=== PATIENT | male | born 1970 | race American Indian/Alaskan Native ===

== ENCOUNTER 2021-09-30 21:16 | Emergency (ER) | payer BC ==
--- NOTE | 2021-09-30 22:05 | Emergency Department Report ---
ED Fall HPI - General Chief Complaint: Fall Stated Complaint: FALL, ETOH, LACERATION Time Seen by Provider: 09/30/21 21:44 Source: patient, EMS Mode of arrival: Stretcher - History of Present Illness Initial Comments: Patient is 51 years old male with no significant past medical history except for alcohol abuse. Patient brought to the emergency room via EMS from home for evaluation after a fall. Patient family stated that patient was drinking Veronica when he fell landed on his face. Patient brought with a cervical collar in place. Patient is obtunded with appears to be intoxicated. Patient had to abrasion on his face 1 on the forehead and the other 1 is and the nose. Patient denies any other injuries. MD Complaint: fall -: This evening Fall From: standing Place Fall Occurred: home Symptoms Prior to Fall: none Location: head, neck Severity: moderate Context: tripped/slipped, alcohol use - Related Data Allergies Allergy/AdvReac Type Severity Reaction Status Date / Time No Known Allergies Allergy Verified 09/30/21 22:55 ED Review of Systems ROS: Stated complaint: FALL, ETOH, LACERATION Other details as noted in HPI Comment: All other systems reviewed and negative Constitutional: denies: chills Respiratory: denies: cough, shortness of breath, SOB with exertion Cardiovascular: denies: chest pain, palpitations Gastrointestinal: denies: abdominal pain, nausea, vomiting Musculoskeletal: denies: back pain Neurological: denies: headache, weakness, numbness, paresthesias, confusion ED Past Medical Hx - Past Medical History Previous Medical History?: No - Surgical History Past Surgical History?: No ED Physical Exam - General Limitations: Altered Mental Status General appearance: alert, in no apparent distress - Head Head exam: Present: other (Abrasion to the forehead and nose bridge.) - ENT ENT exam: Present: normal exam, normal orophraynx, mucous membranes moist - Neck Neck exam: Present: normal inspection, full ROM. Absent: tenderness, meningismus - Respiratory Respiratory exam: Present: normal lung sounds bilaterally - Cardiovascular Cardiovascular Exam: Present: regular rate, normal rhythm, normal heart sounds - GI/Abdominal GI/Abdominal exam: Present: soft, normal bowel sounds. Absent: distended, tenderness, guarding, rebound, rigid, organomegaly, mass, bruit, pulsatile mass, hernia - Extremities Exam Extremities exam: Present: normal inspection, full ROM, normal capillary refill. Absent: tenderness - Back Exam Back exam: Present: normal inspection, full ROM. Absent: CVA tenderness (R), CVA tenderness (L) - Neurological Exam Neurological exam: Present: altered, CN II-XII intact. Absent: motor sensory deficit - Psychiatric Psychiatric exam: Present: normal mood - Skin Skin exam: Present: warm, intact ED Course Vital Signs 09/30/21 21:36 Temperature 97.4 F L Pulse Rate 66 Respiratory 18 Rate Blood Pressure 98/53 [Left] O2 Sat by Pulse 95 Oximetry ED Medical Decision Making - Lab Data Result diagrams: 09/30/21 22:30 09/30/21 22:30 - Radiology Data Radiology results: report reviewed - Medical Decision Making Patient is 51 years old male with no significant past medical history except for alcohol abuse. Patient brought to the emergency room via EMS from home for evaluation after a fall. Patient family stated that patient was drinking Veronica when he fell landed on his face. Patient brought with a cervical collar in place. Patient is obtunded with appears to be intoxicated. Patient had to abrasion on his face 1 on the forehead and the other 1 is and the nose. Patient denies any other injuries. CT brain, CT facial bone and CT cervical spine is negative for acute finding. Labs reviewed and is unremarkable. Patient is alert, oriented x3 in no acute distress. Patient asking when is he going home. Patient counseled about alcohol abuse and advised to follow-up with his primary doctor in the next 2 to 3 days and treated if he develop any new symptoms. Critical care attestation.: If time is entered above; I have spent that time in minutes in the direct care of this critically ill patient, excluding procedure time. ED Disposition Clinical Impression: Head injury, Fall, Alcohol abuse Disposition: HOME / SELF CARE / HOMELESS Is pt being admited?: No Condition: Stable Instructions: Alcohol Use Disorder, Head Injury, Adult Referrals: BOWEN DÍAZ [Primary Care Provider] - 3-5 Days
--- NOTE | 2021-09-30 22:55 | Cat Scan Report ---
CT facial bones wo con, CT head/brain wo con INDICATION: Fall. TECHNIQUE: CT head and CT face. All CT scans at this location are performed using CT dose reduction f or ALARA by means of automated exposure control. COMPARISON: None. FINDINGS: HEAD: BRAIN PARENCHYMA: No acute intracranial hemorrhage. No evidence of recent infarct. No mass effect or midline shift. VENTRICULAR SYSTEM/EXTRA-AXIAL SPACES: Ventricles are normal for age. No extra-axial fluid collection . CALVARIUM: Soft tissue swelling of the frontal scalp. Calvarium is intact. FACE: FACIAL BONES: Small essentially nondisplaced fracture of the right nasal bone, age indeterminate. Elvis al septum is intact. Bony orbits are preserved. Maxilla/pterygoid plates and zygomatic arches are int act. Mandibular condyles are well-seated within the glenoid fossa of the temporal mandibular joint. SINUSES: Paranasal sinuses and mastoid air cells are essentially clear. ORBITS: Globes are intact. ADDITIONAL FINDINGS:No other significant abnormality. IMPRESSION: 1. No acute intracranial abnormality. 2. Age-indeterminate nondisplaced right nasal bone fracture. Otherwise, no acute facial fractures. Signer Name: Tomas Oquendo MD Signed: 09/30/2021 10:50 PM Workstation Name: [id number]
--- NOTE | 2021-09-30 22:56 | Cat Scan Report ---
CT CERVICAL SPINE WITHOUT CONTRAST INDICATION / CLINICAL INFORMATION: Fall. TECHNIQUE: Axial CT images were obtained through the cervical spine. Sagittal and coronal reformatted images were produced. All CT scans at this location are performed using CT dose reduction for ALARA by means of automated exposure control. COMPARISON: None available. FINDINGS: Alignment: Normal. No acute subluxation. Geographic Bone Lesion: None present. Fracture: No acute fracture. Degenerative Changes: Mild/moderate multilevel degenerative changes, most pronounced at C3-C4. Epidural Hematoma: Not present. Prevertebral / Paraspinal Soft Tissues: Unremarkable. IMPRESSION: No acute cervical spinal fracture. Signer Name: Tomas Oquendo MD Signed: 09/30/2021 10:52 PM Workstation Name: [id number]
[2021-09-30 23:10] LABS: BUN/Creatinine Ratio 11; Basophils # (Auto) 0.1 K/mm3 (0.0-0.1); Basophils % (Auto) 1.2 % (0.0-1.8); Blood Urea Nitrogen 14 mg/dL (9-20); Eosinophils % (Auto) 0.5 % (0.0-4.3); Hematocrit 34.7 % (35.5-45.6); Hemoglobin 11.6 gm/dl (11.8-15.2); Hemolysis Index 9; Lymphocytes % (Auto) 28.7 % (13.4-35.0); Mean Corpuscular HGB Conc 34 % (32-34); Mean Corpuscular Volume 88 fl (84-94); Monocytes # (Auto) 0.7 K/mm3 (0.0-0.8); Platelet Count 309 K/mm3 (140-440); Red Blood Count 3.93 M/mm3 (3.65-5.03); Red Cell Distribution Width 13.9 % (13.2-15.2)
[2021-09-30] MEDS ORDERED: SODIUM CHLORIDE 0.9% 1000 ML 1,000 ML IV ONE (23:45)
[2021-09-30] MEDS ORDERED: ONDANSETRON 4 MG/2 ML INJ IV ONE (23:45)
[2021-09-30] MEDS ORDERED: TETANUS,DIPH,PERTUSS(ACELL) VACCINE 0.5 ML SYRINGE IM ONE (23:52)
[2021-10-01 03:27] VITALS: BP 115/85
== END 2021-10-01 03:30 | disposition home or self-care (01) ==
LOC: ED 21:16
DX: S09.90XA Unspecified injury of head, initial encounter (principal); W19.XXXA Unspecified fall, initial encounter; Y93.79 Activity, other specified sports and athletics; Y92.89 Other specified places as the place of occurrence of the external cause; Y99.8 Other external cause status; F10.10 Alcohol abuse, uncomplicated
CPT/HCPCS: 36415; 70450; 70486; 72125; 80048; 85025; 90471; 90715; 96361; 96374; 99284; J2405; J7030; 80320; Q0162; G0480